=== PATIENT | female | born 1960 | race Caucasian/White ===

== ENCOUNTER → 2021-02-06 10:03 | Outpatient (CLI) | payer BC, SELFPAY ==
--- NOTE | ~2021-02-06 | MM_ITS ---
EXAMINATION: MM screening kerry BI w marco HISTORY: Screening mammogram TECHNIQUE: Craniocaudal and mediolateral oblique 3-D tomosynthesis images were obtained and synthetic 2-D images were generated. CAD analysis was submitted and interpreted. COMPARISON: 10/04/2018 and 09/05/2015 bilateral screening mammogram examinations BREAST PARENCHYMAL COMPOSITION: There are scattered areas of fibroglandular density. FINDINGS: There is no evidence of suspicious mass, calcification, or architectural distortion to sugg est malignancy in either breast. There has been no suspicious interval change. IMPRESSION: 1. No mammographic evidence of malignancy. 2. Recommend routine screening mammography in one year. BI-RADS Category 1: Negative Reviewed, dictated and finalized at location A. AP MAN
== END ==
PROVIDERS: PCP Physician Assistant; Visit Provider Physician Assistant
DX: Z12.31 Encounter for screening mammogram for malignant neoplasm of breast (principal)
CPT/HCPCS: 77063; 77067

== ENCOUNTER → 2021-03-29 12:59 | Outpatient (CLI) | payer BC, SELFPAY ==
--- NOTE | ~2021-03-29 | DEXA_ITS ---
Bone Density Report Name: SUSANA HYDE I Age: 61 Sex: Female Ethnicity: White Date of : 1960 Indication: postmenopausal; screening for osteoporosis; height loss; Referring Provider: Beau, Rosemary Study: Bone densitometry was performed. Exam Date: March 29, 2021 Accession number: [id number] Bone Density: Region BMD T-score Z-score Classification AP Spine (L1-L4) 0.838 -1.9 -0.3 Osteopenia Femoral Neck (Left) 0.618 -2.1 -0.7 Osteopenia Total Hip (Left) 0.757 -1.5 -0.4 Osteopenia Femoral Neck (Right) 0.639 -1.9 -0.5 Osteopenia Total Hip (Right) 0.843 -0.8 0.3 Normal Total Hip Mean 0.800 -1.2 -0.1 Osteopenia World Health Organization criteria for BMD impression classify patients as: Normal (T-score at or above -1.0), Osteopenia (T-score between -1.0 and -2.5), or Osteoporosis (T-score at or below -2.5). 10-year Fracture Risk(1): Major Osteoporotic Fracture 10% Hip Fracture 1.4% Reported Risk Factors: [place] (), Neck BMD=0.618, BMI=29.8 (1) FRAX(R) Version 3.08. Fracture probability calculated for an untreated patient. Fracture probability may be lower if the patient has received treatment. Clinical Information Provided by Patient: Has used the following medications: Vitamin D, Calcium Patient maximum height was 62 Menopause Age: 55 Drinks caffeinated beverages Onset of menses at age 13 Number of children 0 Impression: The patient has low bone mass, based on the Left Femoral Neck T-score. The patient has an estimated ten-year risk of hip fracture of 1.4% and an estimated ten-year risk of major fracture of 10%, based on the WHO FRAX algorithm. Discussion: BONE DENSITY IS LOW AT ONE OR MORE SKELETAL SITES. This patient's lowest T-score is low at one or more skeletal sites. It meets the World Health Organization's (WHO) criteria for ?low bone mass? (T-score between -1.0 and -2.5). The patient's 10-year risk of fracture as calculated by FRAX is less than the threshold where pharmacological therapy is recommended by the National Osteoporosis Foundation (NOF). However, all treatment decisions require clinical judgment and consideration of individual patient factors, including patient preferences, comorbidities, previous drug use, risk factors not captured in the FRAX model (e.g., frailty, falls, vitamin D deficiency, increased bone turnover, interval significant decline in bone density) and possible under or overestimation of fracture risk by FRAX. The patient should follow a healthful lifestyle (good nutrition with adequate calcium and vitamin D, and appropriate weight-bearing exercise). Follow-Up: Consider repeating this study in 2 to 3 years to reassess this patient's status, or sooner if there is some new clinical indication. Reported by: RANDAL on 03/29/2021 1:13:00 PM.
== END ==
PROVIDERS: PCP Physician Assistant; Visit Provider Physician Assistant
DX: Z78.0 Asymptomatic menopausal state (principal); M85.89 Other specified disorders of bone density and structure, multiple sites
CPT/HCPCS: 77080

== ENCOUNTER 2022-09-27 09:12 | Outpatient (CLI) | payer BC, SELFPAY ==
--- NOTE | ~2022-09-27 | XR_ITS ---
EXAMINATION: XR UGIAC w barium swallow DATE: 09/27/2022 10:33 INDICATION: Epigastric abdominal pain. TECHNIQUE: The patient drank thick barium, gas-producing crystals, and thin barium. Fluoroscopy of th e esophagus, stomach, and proximal small bowel was performed. Fluoroscopy exposure time was 0.6 minut es. The total number of images was 274. Total dose-area product was 2.006 Gy-cm^2. COMPARISON: None. FINDINGS: There is no mass or stricture of the esophagus. Esophageal motility is normal. There is no hiatal hernia. There was gastroesophageal reflux with provocative maneuvers. The stomach and proximal small bowel show normal folding patterns. IMPRESSION: 1. Gastroesophageal reflux with provocative maneuvers. Reviewed, dictated and finalized at location A.
--- NOTE | ~2022-09-27 | US_ITS ---
Limited Abdominal Sonogram: Real-time sonographic imaging of the right upper quadrant was performed. Clinical History: Epigastric pain Findings: The liver demonstrates possible mild diffuse increased echogenicity. There is a 2.1 x 1.6 x 1.8 cm hypoechoic area at the anterior liver, probably in the left hepatic lobe.. Main portal vein demonstrates normal direction of flow. The gallbladder is well distended, and appears normal with no evidence of gallstone or wall thickening. The common bile duct measures 5 mm. The visualized pancrea s, aorta, and IVC are unremarkable. Impression: 2.1 x 1.6 x 1.8 cm hypoechoic area in the anterior left hepatic lobe with mild posterior through singh smission. This could represent a cyst, or possibly focal fatty sparing. Other lesions are not definit ively excluded. Contrast-enhanced CT or MR should be considered to further assess. Possible mild background fatty infiltration of the liver. Reviewed, dictated and finalized at [facility]. Impression: 2.1 x 1.6 x 1.8 cm hypoechoic area in the anterior left hepatic lobe with mild posterior through transmission. This could represent a cyst, or possibly focal fatty sparing. Other lesions are not definitively excluded. Contrast-enhanced C T or MR should be considered to further assess. Possible mild background fatty infiltration of the liver.
== END 2022-09-27 09:13 | disposition home or self-care (01) ==
PROVIDERS: PCP Physician Assistant; Visit Provider Surgery
DX: R10.13 Epigastric pain (principal); K21.9 Gastro-esophageal reflux disease without esophagitis
CPT/HCPCS: 74246; 76705

== ENCOUNTER 2022-10-04 07:51 | Outpatient (CLI) | payer BC, SELFPAY ==
--- NOTE | ~2022-10-04 | CT_ITS ---
CT of the Abdomen: Indication: Liver disease Technique: 2.5 mm axial scans were obtained through the abdomen following intravenous administration of 100 cc of Omnipaque 350. Dose reduction technique was used on this scan by utilizing automated ex posure control and iterative reconstruction technique. The dose-length product (DLP) was 291.48 mGy-c m. COMPARISON: Ultrasound dated 09/27/2022 Findings: Scans through the lung bases are unremarkable. Small hepatic cyst present adjacent to the falciform ligament region. The spleen, pancreas, gallbladd er, adrenals and kidneys are within normal limits. There are mild atherosclerotic calcifications of t he aorta. No lymphadenopathy. Visualized bowel loops are unremarkable. No ascites. Prominent Schmorl's node noted at the superior e ndplate region of T12. Impression: Hepatic cyst in the anterior left hepatic lobe, which correlates with finding on recent ultrasound. Reviewed, dictated and finalized at location . Impression: Hepatic cyst in the anterior left hepatic lobe, which correlates with finding o n recent ultrasound.
[2022-10-04 08:21] LABS: Estimated Glomerular Filt Rate > 60
== END 2022-10-04 07:52 | disposition home or self-care (01) ==
PROVIDERS: PCP Physician Assistant; Visit Provider Surgery
DX: K76.89 Other specified diseases of liver (principal)
CPT/HCPCS: 74160; Q9967

== ENCOUNTER → 2023-02-05 08:35 | Outpatient (CLI) | payer BC, SELFPAY ==
--- NOTE | ~2023-02-05 | MMUS_ITS ---
EXAMINATION: MM diagnostic kerry RT w marco, US breast RT complete HISTORY: Lateral asymmetry on 08/24/2022 screening mammogram TECHNIQUE: Additional 3-D tomosynthesis images of the right breast were performed and synthetic 2-D i mages were generated. CAD analysis was submitted and interpreted. High resolution complete right natali st ultrasound examination including all 4 quadrants and subareolar area was performed. COMPARISON: 08/24/2022 bilateral screening mammogram BREAST PARENCHYMAL COMPOSITION: There are scattered areas of fibroglandular density. FINDINGS: MAMMOGRAPHIC FINDINGS: No suspicious mass lesion or architectural distortion, malignant calcification, skin thickening or re traction is detected. ULTRASOUND: No suspicious mass is detected. There is a focal area of shadowing in the 12:00 subareolar area with out associated mass lesion, without mammographic correlate. IMPRESSION: 1. Probably benign finding 2. Recommend 6 month diagnostic right mammogram and right breast follow up BI-RADS category 3, probably benign findings. Reviewed, dictated and finalized at location A. CENTER MANA[facility] IMPRESSION: 1. Probably benign finding 2. Recommend 6 month diagnostic right mammogram and right breast follow up BI-RADS category 3, probably benign findings.
== END ==
PROVIDERS: PCP Physician Assistant; Visit Provider Physician Assistant
DX: R92.8 Other abnormal and inconclusive findings on diagnostic imaging of breast (principal)
CPT/HCPCS: 76641; 77061; 77065; G0279